=== PATIENT | female | born 1945 | race Caucasian/White ===

== ENCOUNTER 2017-10-23 09:36 | Outpatient (CLI) | payer OTHER | END 2017-10-23 09:43 | disposition home or self-care (01) | LOC: RAD 501 09:36 | DX: J20.9 Acute bronchitis, unspecified (principal); J11.1 Influenza due to unidentified influenza virus with other respiratory manifestations ==

== ENCOUNTER 2017-10-28 14:39 | Outpatient (CLI) | payer OTHER | END 2017-10-28 14:45 | disposition home or self-care (01) | LOC: SONOGRAMA 14:39 | DX: E04.1 Nontoxic single thyroid nodule (principal) ==

== ENCOUNTER 2017-10-31 08:51 | Outpatient (CLI) | payer OTHER | END 2017-10-31 08:52 | disposition home or self-care (01) | LOC: SONOGRAMA 08:51 | DX: E04.1 Nontoxic single thyroid nodule (principal) ==

== ENCOUNTER 2017-11-07 11:21 | Outpatient (CLI) | payer OTHER | END 2017-11-07 14:04 | disposition home or self-care (01) | LOC: MAMO-SONO 11:21 | DX: Z12.31 Encounter for screening mammogram for malignant neoplasm of breast (principal); Z87.898 Personal history of other specified conditions; N64.4 Mastodynia ==

== ENCOUNTER 2019-09-09 11:00 | Outpatient (CLI) | payer OTHER | END 2019-09-09 11:06 | disposition home or self-care (01) | LOC: MAMO-SONO 11:00 | DX: Z12.31 Encounter for screening mammogram for malignant neoplasm of breast (principal); Z87.898 Personal history of other specified conditions; N64.4 Mastodynia ==

== ENCOUNTER 2022-03-12 09:45 | Outpatient (CLI) | payer OTHER | END 2022-03-12 09:51 | disposition home or self-care (01) | LOC: RAD 09:45 | PROVIDERS: ATTEND Plastic Surgery Surgery of the Hand | DX: M19.049 Primary osteoarthritis, unspecified hand (principal) ==

== ENCOUNTER 2023-08-22 11:35 | Outpatient (CLI) | payer OTHER | END 2023-08-22 13:20 | disposition home or self-care (01) | LOC: MRI 11:35 | PROVIDERS: ATTEND Physical Medicine & Rehabilitation | DX: S83.261A Peripheral tear of lateral meniscus, current injury, right knee, initial encounter (principal); M25.561 Pain in right knee | CPT/HCPCS: 73721 ==

== ENCOUNTER 2024-07-03 13:13 | Outpatient (CLI) | payer OTHER | END 2024-07-03 13:24 | disposition home or self-care (01) | LOC: MRI 13:13 | PROVIDERS: ATTEND Orthopaedic Surgery Sports Medicine | DX: M23.222 Derangement of posterior horn of medial meniscus due to old tear or injury, left knee (principal); M23.221 Derangement of posterior horn of medial meniscus due to old tear or injury, right knee | CPT/HCPCS: 73721 ==

== ENCOUNTER 2025-01-27 11:07 | Outpatient (CLI) | payer OTHER | END 2025-01-27 11:09 | disposition home or self-care (01) | LOC: MRI 11:07 | PROVIDERS: ATTEND Orthopaedic Surgery Sports Medicine | DX: M23.221 Derangement of posterior horn of medial meniscus due to old tear or injury, right knee (principal) | CPT/HCPCS: 73720; Q9965; 73721 ==